=== PATIENT | female | born 1990 | race African-American/Black ===

== ENCOUNTER 2022-09-22 08:58 | Emergency (ER) | payer MEDICAID, OTHER ==
[~2022-09-22] VITALS: Ht 165.1 cm; Wt 150.4 kg
[2022-09-22 10:03] VITALS: BP 137/89
[2022-09-22] MEDS ORDERED: KETOROLAC TROMETH 60MG/2ML VIAL IM ONE (10:15)
[2022-09-22 12:23] LABS: Urine WBC None Seen /hpf (0 - 5)
[2022-09-22 13:07] LABS: Urine Bacteria NONE SEEN /hpf (None Seen); Urine Blood Negative /uL (Negative); Urine Mucus FEW (None Seen); Urine Specific Gravity 1.013 (1.001-1.035)
[2022-09-22] MEDS ORDERED: HYDROcodone-ACET 10/325MG TAB PO ONE (13:30)
[2022-09-22] MEDS ORDERED: HYDR-4798 PO (14:59)
[2022-09-22] MEDS ORDERED: IBUP800T26 PO (14:59)
== END 2022-09-22 15:00 | disposition home or self-care (01) ==
LOC: ER 08:58
DX: Q05.9 Spina bifida, unspecified (principal); E66.01 Morbid (severe) obesity due to excess calories; M54.50 Low back pain, unspecified; Z68.43 Body mass index [BMI] 50.0-59.9, adult
CPT/HCPCS: 72100; 81001; 96372; 99284; J1885